=== PATIENT | male | born 1970 | race Caucasian/White ===

== ENCOUNTER 2016-12-19 11:18 | Emergency (ER) | payer MEDICAID ==
[2016-12-19 11:20] VITALS: BMI 25.4
[2016-12-19 11:22] VITALS: RESP 18
[2016-12-19] MEDS ORDERED: Lactated Ringer's 1,000 ML IV STA (12:00)
[2016-12-19 12:15] LABS: BASO % 0.6 % (0.0-2.0); EOS # 0.2 K/uL (0.0-0.7); EOS % 3.1 % (0.0-4.0); HEMATOCRIT 45.5 % (35.0-51.0); LYMPH # 2.1 K/uL (1.0-4.3); MEAN CELL VOLUME 85.8 fL (80.0-94.0); MEAN CORPUSCULAR HEMOGLOBIN 29.2 pg (27.0-31.0); MEAN PLATELET VOLUME 7.6 fL (7.2-11.7); MONO # 0.4 K/uL (0.0-0.8); MONO % 6.6 % (0.0-10.0); NRBC % 0.1 % (0.0-2.0); RED CELL DISTRIBUTION WIDTH 15.9 % (11.5-14.5); WHITE BLOOD COUNT 6.6 K/uL (4.8-10.8)
[2016-12-19] MEDS ORDERED: Lactated Ringer's 1,000 ML ONE (12:54)
[2016-12-19 13:07] LABS: URINE BILIRUBIN NEGATIVE (NEGATIVE); URINE BLOOD NEGATIVE (NEGATIVE); URINE COLOR Yellow (YELLOW); URINE GLUCOSE (UA) NORMAL (Normal); URINE KETONE NEGATIVE (NEGATIVE); URINE LEUKOCYTE ESTERASE NEG Leu/uL (Negative); URINE PROTEIN NEGATIVE (NEGATIVE); URINE UROBILINOGEN NORMAL mg/dL (0.2-1.0); WBC URINE < 1 /hpf (0-5)
[2016-12-19 13:13] LABS: ALB/GLOB RATIO 1.6 (1.0-2.1); ALKALINE PHOSPHATASE 86 U/L (38-126); ALT/SGPT 254 U/L (21-72); AST/SGOT 125 U/L (17-59); BILIRUBIN,TOTAL 1.3 mg/dL (0.2-1.3); BLOOD UREA NITROGEN 16 mg/dL (9-20); CALCIUM 8.4 mg/dl (8.6-10.4); CARBON DIOXIDE 25 mmol/L (22-30); CHLORIDE 102 mmol/L (98-107); GFR AFRICAN-AMERICAN > 60; GLUCOSE,RANDOM 83 mg/dL (75-110); POTASSIUM 4.2 mmol/L (3.6-5.2); SODIUM 135 mmol/L (132-148); TOTAL PROTEIN 6.5 g/dL (6.3-8.3)
--- NOTE | 2016-12-19 13:52 | C.PDOC ---
History Of Present Illness 46 year old male presents to the ED for evaluation of right upper quadrant abdominal pain which began around 3 days ago. Patient also complains of associated nausea and constipation, stating he had trouble with his bowel movement today. Patient has not taken any medicine to manage his symptoms and denies fever, chills, and vomiting at this time. Time Seen by Provider: 12/19/16 11:51 Chief Complaint (Nursing): Abdominal Pain History Per: Patient History/Exam Limitations: no limitations Onset/Duration Of Symptoms: Days (3) Current Symptoms Are (Timing): Still Present Location Of Pain/Discomfort: RUQ Radiation Of Pain To:: None Quality Of Discomfort: "Pain" Associated Symptoms: Constipation. denies: Fever, Chills, Nausea, Vomiting Last Bowel Movement: Yesterday Additional History Per: Patient Past Medical History Reviewed: Historical Data, Nursing Documentation, Vital Signs Vital Signs: Last Vital Signs Temp 98.2 F 12/19/16 15:24 Pulse 62 12/19/16 15:24 Resp 18 12/19/16 15:24 BP 120/87 12/19/16 15:24 Pulse Ox 100 12/19/16 15:24 - Medical History PMH: No Chronic Diseases Surgical History: Appendectomy, Hernia Repair (inguinal ) Family History: States: Unknown Family Hx - Social History Hx Alcohol Use: No Hx Substance Use: No - Immunization History Hx Tetanus Toxoid Vaccination: No Hx Influenza Vaccination: No Hx Pneumococcal Vaccination: No Review Of Systems Constitutional: Negative for: Fever, Chills Gastrointestinal: Positive for: Abdominal Pain (right upper quadrant ), Constipation. Negative for: Nausea, Vomiting Physical Exam - Physical Exam Appears: Non-toxic, Other (uncomfortable ) Skin: Normal Color, Warm, Dry Head: Atraumatic, Normacephalic Eye(s): bilateral: Normal Inspection Oral Mucosa: Moist Neck: Supple Chest: Symmetrical, No Deformity, No Tenderness Cardiovascular: Rhythm Regular, No Murmur Respiratory: Normal Breath Sounds, No Rales, No Rhonchi, No Wheezing Gastrointestinal/Abdominal: Soft, Tenderness (to right upper quadrant on palpation ), No Guarding, No Rebound, No Other (Ennis's sign ) Extremity: Normal ROM, Capillary Refill (less than 2 seconds ) Neurological/Psych: Oriented x3, Normal Speech, Normal Cognition Gait: Steady ED Course And Treatment - Laboratory Results Result Diagrams: 12/19/16 12:09 12/19/16 12:09 O2 Sat by Pulse Oximetry: 98 (on RA) Pulse Ox Interpretation: Normal - CT Scan/US US Abdomen Other Rad Studies (CT/US): Interpreted By Me, Read By Radiologist, Radiology Report Reviewed CT/US Interpretation: Abdominal ultrasound. History: Abdominal pain. Comparison: None available. Technique: Real-time sonography was performed through the abdomen. Findings: Liver: 19 centimeters in length. Increased echogenicity of the hepatic parenchymal cortex suggestive for fatty infiltration versus hepatic parenchymal disease. Clinical correlation. Gallbladder appears preserved. No calculi or sludge. Normal wall thickness of 1.4 millimeters. Negative sonographic Ennis's sign. Common bile duct measures 3 millimeters, within normal limits. Pancreas not well visualized. Spleen measures 9.2 centimeters in length, within normal limits. Limited visualization of the aorta. Visualized IVC is preserved. Right kidney: 11.6 x 4.3 x 4.5 centimeters. No calculi or hydronephrosis. Left Kidney: 11.6 x 5.1 x 4.6 centimeters. No calculi or hydronephrosis. Impression: 1. Prominent liver with diffuse increased echogenicity of the hepatic parenchymal cortex suggestive for fatty infiltration versus hepatic parenchymal disease. Clinical correlation. 2. Limited visualization of the pancreas and aorta. Medical Decision Making Medical Decision Making: Impression: 46 year old male with right upper quadrant abdominal pain and constipation Plan: * Bloodwork * urinalysis * US Abdomen * Pepcid IVP * Toradol IVP * Zofran IVP * Lactated Ringers Solution IV * reassess and disposition Progress: Pepcid IVP, Toradol IVP, Zofran IVP and Lactated Ringers IV Solution administered. Labs reviewed normal H/H. No electrolyte abnormality. LFTs elevated. US shows no gallstones or cholecystitis; findings include . Prominent liver with diffuse increased echogenicity of the hepatic parenchymal cortex suggestive for fatty infiltration versus hepatic parenchymal disease I discussed results with patient and he denies any chronic alcohol use, drinks socially but had prior history of heroin abuse. I provided copies of results and advised follow up with clinic for further evaluation. Disposition Counseled Patient/Family Regarding: Studies Performed, Diagnosis, Need For Followup, Rx Given - Disposition Referrals: [facility] [Outside] [facility] [Outside] Disposition: HOME/ ROUTINE Disposition Time: 14:35 Condition: IMPROVED Additional Instructions: Follow up with your primary medical doctor or clinic in 2-5 days for further evaluation. Take medications as needed for pain. Return to the emergency department at any time if symptoms persist or worsen. 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 - Scribe Statement The provider has reviewed the documentation as recorded by the Scribe (Latrice Reyes) All medical record entries made by the Scribe were at my direction and personally dictated by me. I have reviewed the chart and agree that the record accurately reflects my personal performance of the history, physical exam, medical decision making, and the department course for this patient. I have also personally directed, reviewed, and agree with the discharge instructions and disposition.
--- NOTE | 2016-12-19 14:03 | US ---
Abdominal ultrasound History: Abdominal pain. Comparison: None available. Technique: Real-time sonography was performed through the abdomen. Findings: Liver: 19 centimeters in length. Increased echogenicity of the hepatic parenchymal cortex suggestive for fatty infiltration versus hepatic parenchymal disease. Clinical correlation. Gallbladder appears preserved. No calculi or sludge. Normal wall thickness of 1.4 millimeters. Negative sonographic Ennis's sign. Common bile duct measures 3 millimeters, within normal limits. Pancreas not well visualized. Spleen measures 9.2 centimeters in length, within normal limits. Limited visualization of the aorta. Visualized IVC is preserved. Right kidney: 11.6 x 4.3 x 4.5 centimeters. No calculi or hydronephrosis. Left Kidney: 11.6 x 5.1 x 4.6 centimeters. No calculi or hydronephrosis. Impression: 1. Prominent liver with diffuse increased echogenicity of the hepatic parenchymal cortex suggestive for fatty infiltration versus hepatic parenchymal disease. Clinical correlation. 2. Limited visualization of the pancreas and aorta.
[2016-12-19 15:25] VITALS: BP 120/87; PULSE 62; TEMP 98.2
[2016-12-19 17:35] VITALS: O2SAT 98
== END 2016-12-19 15:25 | disposition home or self-care (01) ==
LOC: C.ER 11:18
DX: K76.0 Fatty (change of) liver, not elsewhere classified (principal); R79.89 Other specified abnormal findings of blood chemistry; R10.12 Left upper quadrant pain
CPT/HCPCS: 76700; 80053; 81001; 83690; 85025; 87086; 96361; 96374; 96375; 99285; J1885; J2405; J7120

== ENCOUNTER 2016-12-22 08:11 | Emergency (ER) | payer MEDICAID ==
[2016-12-22 08:11] VITALS: BMI 25.4
[2016-12-22 08:31] VITALS: O2SAT 97
--- NOTE | 2016-12-22 08:54 | C.PDOC ---
History Of Present Illness The patient reports that he has been experiencing Right sided abdominal pain over the past 5-6 days. Patient reports that he was seen in the ED for similar symptoms and was discharged home. Patient reports that the pain has return and has traveled to the right lower abdomen, radiates to the right side of the back , and is associated with nausea. Otherwise the patient denies vomiting, diarrhea , fever, GI bleeding, chest pain, SOB, Time Seen by Provider: 12/22/16 08:32 Chief Complaint (Nursing): Abdominal Pain History Per: Patient History/Exam Limitations: no limitations Onset/Duration Of Symptoms: Days Current Symptoms Are (Timing): Still Present Location Of Pain/Discomfort: RLQ Radiation Of Pain To:: None Quality Of Discomfort: "Pain" Associated Symptoms: Nausea. denies: Fever, Chills, Vomiting, Diarrhea Recent travel outside of the [place]: No Past Medical History Reviewed: Historical Data, Nursing Documentation, Vital Signs Vital Signs: Last Vital Signs Temp 98.1 F 12/22/16 12:56 Pulse 62 12/22/16 12:56 Resp 18 12/22/16 12:56 BP 122/81 12/22/16 12:56 Pulse Ox 97 12/22/16 13:53 - Medical History PMH: No Chronic Diseases Surgical History: Appendectomy, Hernia Repair (inguinal ) Family History: States: Unknown Family Hx - Social History Hx Alcohol Use: No Hx Substance Use: No - Immunization History Hx Tetanus Toxoid Vaccination: No Hx Influenza Vaccination: No Hx Pneumococcal Vaccination: No Review Of Systems Except As Marked, All Systems Reviewed And Found Negative. Constitutional: Negative for: Fever, Chills Respiratory: Negative for: Cough, Wheezing Gastrointestinal: Positive for: Nausea, Abdominal Pain. Negative for: Vomiting , Diarrhea Skin: Negative for: Rash Neurological: Negative for: Headache, Dizziness Physical Exam - Physical Exam Appears: Non-toxic, No Acute Distress Skin: Normal Color, Warm, Dry Head: Atraumatic, Normacephalic Oral Mucosa: Moist Chest: Symmetrical Cardiovascular: Rhythm Regular Respiratory: Normal Breath Sounds, No Rales, No Rhonchi, No Wheezing Gastrointestinal/Abdominal: Soft, Tenderness (mild to moderate RLQ abdominal tenderness), No Guarding, No Rebound Back: Normal Inspection, No CVA Tenderness Extremity: Normal ROM, Capillary Refill (< 2 sec.) Neurological/Psych: Oriented x3, Normal Speech, Normal Cognition ED Course And Treatment - Laboratory Results Result Diagrams: 12/22/16 09:09 12/22/16 09:09 O2 Sat by Pulse Oximetry: 97 (RA) Pulse Ox Interpretation: Normal - CT Scan/US CT Abd Pelvis Other Rad Studies (CT/US): Read By Radiologist, Radiology Report Reviewed CT/US Interpretation: IMPRESSION: Unremarkable contrast enhanced CT of the abdomen and pelvis. Progress Note: CT abdomen/pelvis, labs ordered. Pepcid, Toradol, Zofran, and IVFs ordered. CT negative. Advised pt to f/u with PMD/clinic. Medical Decision Making Medical Decision Making: Old records reviewed, the patient was last seen in the ED on 12/19/16 for similar symptoms. Patient had an ultrasound which showed fatty liver and patient was discharged home after improvement. Disposition - Disposition Referrals: [facility] [Outside] Disposition: HOME/ ROUTINE Disposition Time: 13:49 Condition: GOOD Additional Instructions: Follow up with the medical doctor within 1-2 days. Return if worsened. 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 - Scribe Statement The provider has reviewed the documentation as recorded by the Scribe SM All medical record entries made by the Scribe were at my direction and personally dictated by me. I have reviewed the chart and agree that the record accurately reflects my personal performance of the history, physical exam, medical decision making, and the department course for this patient. I have also personally directed, reviewed, and agree with the discharge instructions and disposition.
[2016-12-22] MEDS ORDERED: Sodium Chloride 0.9% 500 ML IV ONE ×2 (08:57→09:28)
[2016-12-22] MEDS ORDERED: Iohexol 240 (50 ml) PO STA (08:57)
[2016-12-22 09:14] LABS: BASO # 0.1 K/uL (0.0-0.2); BASO % 0.9 % (0.0-2.0); EOS # 0.2 K/uL (0.0-0.7); EOS % 2.7 % (0.0-4.0); HEMATOCRIT 47.1 % (35.0-51.0); LYMPH # 1.9 K/uL (1.0-4.3); MEAN CELL VOLUME 86.2 fL (80.0-94.0); MEAN CORPUSCULAR HEMOGLOBIN 28.6 pg (27.0-31.0); MEAN CORPUSCULAR HGB CONC 33.1 g/dL (33.0-37.0); MEAN PLATELET VOLUME 7.5 fL (7.2-11.7); MONO # 0.5 K/uL (0.0-0.8); MONO % 8.4 % (0.0-10.0); NRBC % 0.1 % (0.0-2.0); RED CELL DISTRIBUTION WIDTH 15.9 % (11.5-14.5); WHITE BLOOD COUNT 6.1 K/uL (4.8-10.8)
[2016-12-22] MEDS ORDERED: Iohexol 240 (50 ml) ONE (09:28)
[2016-12-22 09:34] LABS: ALB/GLOB RATIO 1.5 (1.0-2.1); ALKALINE PHOSPHATASE 81 U/L (38-126); ALT/SGPT 263 U/L (21-72); AST/SGOT 129 U/L (17-59); BILIRUBIN,TOTAL 1.5 mg/dL (0.2-1.3); BLOOD UREA NITROGEN 15 mg/dL (9-20); CALCIUM 8.4 mg/dl (8.6-10.4); CARBON DIOXIDE 24 mmol/L (22-30); CHLORIDE 102 mmol/L (98-107); GFR AFRICAN-AMERICAN > 60; GLUCOSE,RANDOM 98 mg/dL (75-110); SODIUM 136 mmol/L (132-148); TOTAL PROTEIN 6.6 g/dL (6.3-8.3)
[2016-12-22] MEDS ORDERED: Iodixanol 320 MG/ML 100 ML BOTTLE IV ONE (11:53)
[2016-12-22 12:57] VITALS: BP 122/81; PULSE 62; RESP 18; TEMP 98.1
--- NOTE | 2016-12-22 13:12 | CT ---
PROCEDURE: CT Abdomen and Pelvis with contrast HISTORY: abd pain COMPARISON: None. TECHNIQUE: Contrast dose: 100 mL Visipaque 320 Radiation dose: Total exam DLP = mGy-cm. This CT exam was performed using one or more of the following dose reduction techniques: Automated exposure control, adjustment of the mA and/or kV according to patient size, and/or use of iterative reconstruction technique. FINDINGS: LOWER THORAX: Unremarkable. LIVER: Unremarkable. No gross lesion or ductal dilatation. GALLBLADDER AND BILE DUCTS: Unremarkable. PANCREAS: Unremarkable. No gross lesion or ductal dilatation. SPLEEN: Unremarkable. ADRENALS: Unremarkable. No mass. KIDNEYS AND URETERS: Unremarkable. No hydronephrosis. No solid mass. VASCULATURE: Unremarkable. No aortic aneurysm. BOWEL: Unremarkable. No obstruction. No gross mural thickening. APPENDIX: Normal appendix. PERITONEUM: Unremarkable. No free fluid. No free air. LYMPH NODES: Unremarkable. No enlarged lymph nodes. BLADDER: Unremarkable. REPRODUCTIVE: Unremarkable. BONES: No acute fracture. OTHER FINDINGS: None. IMPRESSION: Unremarkable contrast enhanced CT of the abdomen and pelvis.
== END 2016-12-22 14:00 | disposition home or self-care (01) ==
LOC: C.ER 08:11
DX: R10.9 Unspecified abdominal pain (principal)
CPT/HCPCS: 74177; 80053; 83690; 85025; 96361; 96374; 96375; 99285; J1885; J2405; J7040; Q9966; Q9967

== ENCOUNTER 2017-03-05 09:14 | Day surgery (SDC) | payer MEDICAID ==
[2017-03-05 09:49] VITALS: O2SAT 97
[2017-03-05] MEDS ORDERED: Propofol 10 mg/ml Inj (20 ML) ONE (12:17)
[2017-03-05] MEDS ORDERED: Lidocaine Hydrochloride 5 ML INJ ONE (13:17)
[2017-03-05 14:05] VITALS: TEMP 98
[2017-03-05 14:34] VITALS: BP 101/63; PULSE 68; RESP 18
== END 2017-03-05 14:20 | disposition designated cancer center or children's hospital (05) ==
LOC: C.ENDO 09:14
PROVIDERS: ATTEND Internal Medicine Gastroenterology
DX: B19.20 Unspecified viral hepatitis C without hepatic coma (principal); R94.5 Abnormal results of liver function studies; R10.9 Unspecified abdominal pain; B96.81 Helicobacter pylori [H. pylori] as the cause of diseases classified elsewhere; K29.70 Gastritis, unspecified, without bleeding; G89.29 Other chronic pain
CPT/HCPCS: 43239; 88305; J2704